=== PATIENT | male | born 1995 | race Caucasian/White ===

== ENCOUNTER 2019-04-04 20:09 | Emergency (ER) | payer SELFPAY ==
[~2019-04-04] VITALS: Ht 180.3 cm; Wt 77.3 kg
[2019-04-04] MEDS ORDERED: ACETAMINOPHEN 160 MG/5 ML SUSPENSION UDCUP PO ONE (21:00)
[2019-04-04] MEDS ORDERED: LIDOCAINE 2% VISCOUS 15 ML SOLUTION UDCUP PO ONE (21:00)
[2019-04-04 21:35] VITALS: BP 132/84
== END 2019-04-04 21:37 | disposition home or self-care (01) ==
LOC: EMS 20:11
DX: S27.818A Other injury of esophagus (thoracic part), initial encounter (principal); F17.210 Nicotine dependence, cigarettes, uncomplicated; F12.90 Cannabis use, unspecified, uncomplicated; X58.XXXA Exposure to other specified factors, initial encounter; Y93.89 Activity, other specified; Y92.89 Other specified places as the place of occurrence of the external cause; Y99.8 Other external cause status
CPT/HCPCS: 99406